=== PATIENT | male | born 1985 | race Caucasian/White ===

== ENCOUNTER 2020-07-25 18:47 | Emergency (ER) | payer OTHER ==
[~2020-07-25] VITALS: Ht 170.2 cm; Wt 98.2 kg
[2020-07-25 18:48] VITALS: BP 157/90
[2020-07-25] MEDS ORDERED: LIDOCAINE 1% MDV 20ML VIAL SC ONE (19:15)
== END 2020-07-25 19:51 | disposition home or self-care (01) ==
LOC: M ED 18:47
DX: S61.412A Laceration without foreign body of left hand, initial encounter (principal); W26.0XXA Contact with knife, initial encounter; Y92.099 Unspecified place in other non-institutional residence as the place of occurrence of the external cause; Y93.G1 Activity, food preparation and clean up; Y99.9 Unspecified external cause status